=== PATIENT | female | born 1975 ===

== ENCOUNTER 2017-08-01 10:18 | Emergency (ER) | payer OTHER ==
[~2017-08-01] VITALS: Ht 175.3 cm; Wt 77.1 kg
[~2017-08-01 10:18] MED LIST: PRENATAL TABLET1 TA1 PO
== END 2017-08-01 15:34 | disposition home or self-care (01) ==
LOC: ER 10:18
DX: N61.0 Mastitis without abscess (principal)

== ENCOUNTER 2017-08-19 09:13 | Day surgery (SDC) | payer OTHER | END 2017-08-19 15:55 | disposition home or self-care (01) | LOC: CIR.AMB 09:13 | DX: N84.0 Polyp of corpus uteri (principal) ==